=== PATIENT | male | born 1950 | race Caucasian/White ===

== ENCOUNTER 2017-04-01 14:17 | Emergency (ER) | payer MEDICARE, BC ==
--- NOTE | 2017-04-01 14:25 | UC ---
Abdominal Pain Male HPI - HPI Summary HPI Summary: 66 YEAR OLD MALE WITH A HISTORY OF AFIB/THORACIC ANEURYSM AND PRESENTS WITH VAGUE EPIGASTRIC PAIN. I AM VERY CONCERNED ABOUT HIS AORTA AND WILL SEND HIM TO THE ER. - History of Current Complaint Stated Complaint: UPPER ABDOMINAL PAIN Time Seen by Provider: 04/01/17 14:24 Hx Obtained From: Patient Onset/Duration: Lasting Days Timing: Constant Severity Initially: Moderate Severity Currently: Moderate Pain Scale Used: 0-10 Numeric - 4 - Allergies/Home Medications Allergies/Adverse Reactions: Allergies Allergy/AdvReac Type Severity Reaction Status Date / Time No Known Allergies Allergy Verified 04/01/17 14:31 PMH/Surg Hx/FS Hx/Imm Hx Previously Healthy: Yes Other History Of: Negative For: HIV - Surgical History Surgical History: Yes Surgery Procedure, Year, and Place: Cardiac Ablation, 2011, [facility]. Tonsillectomy, as a child. Cholecystectomy, 2005, [facility]. VASECTOMY 1980. Prostatectomy, [facility] - Family History Known Family History: Positive: None - Social History Alcohol Use: Rare Substance Use Type: None Smoking Status (MU): Former Smoker - Immunization History Most Recent Tetanus Shot: within 10 years Review of Systems Constitutional: Negative Skin: Negative Eyes: Negative ENT: Negative Respiratory: Negative Cardiovascular: Negative Gastrointestinal: Abdominal Pain Genitourinary: Negative Motor: Negative Neurovascular: Negative Musculoskeletal: Negative Neurological: Negative Psychological: Negative All Other Systems Reviewed And Are Negative: Yes Physical Exam Triage Information Reviewed: Yes Appearance: Well-Appearing Vital Signs Reviewed: Yes Eye Exam: Normal ENT Exam: Normal Dental Exam: Normal Neck exam: Normal Neck: Positive: 1 Respiratory Exam: Normal Cardiovascular Exam: Normal Abdomen Description: Positive: Other: - EPIGASTRIC PAIN Musculoskeletal Exam: Normal Neurological Exam: Normal Psychological Exam: Normal Skin Exam: Normal Abd Pain Male Course/Dx - Differential Dx/Clinical Impression Provider Diagnoses: EPIGASTRIC PAIN Discharge - Discharge Plan Condition: Stable Disposition: HOME Patient Education Materials: Acute Abdominal Pain (ED) Referrals: Neal Vogel MD [Primary Care Provider] - Additional Instructions: PATIENT SUGGESTED TO GO TO THE [facility] FOR FUTHRER CARDIAC EVALUATION.
[2017-04-01 14:31] VITALS: BP 132/81
== END 2017-04-01 14:49 | disposition home or self-care (01) ==
LOC: UCCORT 14:17
DX: R10.13 Epigastric pain (principal); Z87.891 Personal history of nicotine dependence
CPT/HCPCS: 99212; G0463

== ENCOUNTER 2018-10-15 16:07 | Emergency (ER) | payer MEDICARE, BC ==
--- OUTSIDE RECORDS SUMMARY | 2018-10-15 16:16 | XMS REPORT | Continuity of Care Document ---
:1950 External Reference #:[id number] Author Name Vishal San M.D. Address [address] [place] [address] Care Team Providers Name Role Phone Neal Vogel MD Care Team Information Rpg Programmer Analyst [phone] Shon Jean Baptiste MD Care Team Information Rpg Programmer Analyst [phone] Dayne Campbell MD Care Team Information Rpg Programmer Analyst [phone] Problems Active Problems Provider Date Varicose veins of lower extremity Vishal San M.D. Onset: 05/26/2018 Peripheral venous insufficiency Vishal San M.D. Onset: 05/26/2018 Swelling of lower limb Vishal San M.D. Onset: 05/26/2018 Social History Type Date Description Comments Sex Unknown ETOH Use Occasionally consumes alcohol Tobacco Use Start: Unknown End: Patient is a former smoker 1 PPD x 15 years Smoking Status Reviewed: 09/29/18 Patient is a former smoker 1 PPD x 15 years Allergies, Adverse Reactions, Alerts Active Allergies Reaction Severity Comments Date NKDA 05/26/2018 No Latex Allergy 05/26/2018 Medications Active Medications SIG Qnty Indications Ordering Provider Date Klor-Con 10 Take 1 Tablet By Unknown 10Meq Mouth Every Day Tablets ER Diltiazem HCL qd Unknown 120mg Tablets Fluticasone One Inhalation Each Unknown Propionate Nostril Twice Every 50mcg/Act Day Suspension Timolol Maleate Instill 1 Drop In Unknown 0.5% Right Eye Each Solution Morning Losartan Potassium Take 1 Tablet By Unknown Mouth Every Day 100mg Tablets Naproxen Take 1 Tablet By Unknown 500mg Tablets Mouth as Directed Aspir-81 1 by mouth every Unknown 81mg Tablets day DR Hydralazine HCL Take 1 Tablet By Unknown 10mg Mouth Twice A Day Tablets as Needed SBP Over 140 Immunizations Description No Information Available Vital Signs Date Vital Result Comment 09/29/2018 1:09pm Weight 266.00 lb Height 72 inches 6'0" Heart Rate 53 /min Body Temperature 97.0 F BP Systolic 132 mmHg BP Diastolic 70 mmHg BMI (Body Mass Index) 36.1 kg/m2 07/12/2018 10:28am Weight 265.00 lb Height 72 inches 6'0" Heart Rate 60 /min Body Temperature 97.4 F BP Systolic 138 mmHg BP Diastolic 72 mmHg BMI (Body Mass Index) 35.9 kg/m2 05/26/2018 11:12am Weight 260.00 lb Height 72 inches 6'0" Heart Rate 76 /min Body Temperature 98.3 F BP Systolic 132 mmHg BP Diastolic 74 mmHg BMI (Body Mass Index) 35.3 kg/m2 Results Description No Information Available Procedures Date Code Description Status 05/26/2018 84516 Duplex Scan Extremity Veins Complete Bilateral Completed 02/25/2017 38344966 Colonoscopy Completed Medical Devices Description No Information Available Encounters Type Date Location Provider Dx Diagnosis Office Visit 09/29/2018 EZIO San, I83.813 Varicose veins of 1:00p M.D. bilateral lower extremities with pain I87.2 Venous insufficiency (chronic) (peripheral) M79.89 Other specified soft tissue disorders Office Visit 07/12/2018 10:15a EZIO San I83.813 Varicose veins of M.D. bilateral lower extremities with pain I87.2 Venous insufficiency (chronic) (peripheral) M79.89 Other specified soft tissue disorders Office Visit 05/26/2018 11:00a EZIO San I83.813 Varicose veins of M.D. bilateral lower extremities with pain I87.2 Venous insufficiency (chronic) (peripheral) M79.89 Other specified soft tissue disorders Assessments Date Code Description Provider 09/29/2018 I83.813 Varicose veins of bilateral lower Vishal San M.D. extremities with pain 09/29/2018 I87.2 Venous insufficiency (chronic) Vishal San M.D. (peripheral) 09/29/2018 M79.89 Other specified soft tissue disorders Vishal San M.D. 07/12/2018 I83.813 Varicose veins of bilateral lower Vishal San M.D. extremities with pain 07/12/2018 I87.2 Venous insufficiency (chronic) Vishal San M.D. (peripheral) 07/12/2018 M79.89 Other specified soft tissue disorders Vishal San M.D. 05/26/2018 I83.813 Varicose veins of bilateral lower Vishal San M.D. extremities with pain 05/26/2018 I83.813 Varicose veins of bilateral lower [facility] extremities with pain 05/26/2018 I87.2 Venous insufficiency (chronic) Vishal San M.D. (peripheral) 05/26/2018 I87.2 Venous insufficiency (chronic) [facility] (peripheral) 05/26/2018 I83.813 Varicose veins of bilateral lower Vishal San M.D. extremities with pain 05/26/2018 I87.2 Venous insufficiency (chronic) Vishal San M.D. (peripheral) 05/26/2018 M79.89 Other specified soft tissue disorders Vishal San M.D. Plan of Treatment Future Appointment(s):11/15/2018 9:30 am - [facility] [id number] 3:00 pm - [place] [facility] 9:00 am - [facility] [id number]/13/2018 2:30 pm - [facility] [id number] 9:00 am - Vishal [place] [facility]2018 9:00 am - Vishal [place] [facility]2018 9:00 am - [facility] [id number] - Vishal San M.D.I83.813 Varicose veins of bilateral lower extremities with painComments:The patient has symptomatic varicose veins bilaterally with clinical evidence of venous valvular reflux and valvular insufficiency. The patient is encouraged to continue to wear the graduated support stockings ordered, continue with elevation and avoidance of trauma. The patient has no new issues at this time follow-up with the primary care provider and return to office as planned. The patient has been wearing the graduated support stockings ordered, elevating the legs as much as possible, and using anti-inflammatory medications with minimal improvement of the varicose vein symptoms and venous valvular reflux and valvular insufficiency symptoms...wishes to proceed with an operative intervention at this time.The risks and options, including but not limited to infection, recurrence, more surgery, DVT, pulmonary emboli has been discussed in detail and the patient understands the risks and options and wishes to proceed with the planned surgical intervention. The option of continued conservative management and no surgical or intervention option was also discussed in great detail and explained to the patient the possible outcomes of intervention or conservative management with no surgical intervention . The patient was offered a second surgical opinion and consultation which was declined.Follow up:The patient will be scheduled for a left leg great saphenous vein endovenous occlusion and ClosureFast operative procedure and sclerotherapy on 10/31/2018 and then on 2018 of the right leg great saphenous vein endovenous occlusion using the ClosureFast operative procedure as well as sclerotherapy and ambulatory stab phlebectomy.I87.2 Venous insufficiency (chronic) (peripheral)M79.89 Other specified soft tissue [id number]/16/2019 - Vishal San M.D.I83.813 Varicose veins of bilateral lower extremities with painComments:The patient has symptomatic varicose veins bilaterally with clinical evidence of venous valvular reflux and valvular insufficiency. The patient is encouraged to continue to wear the graduated support stockings ordered, continue with elevation and avoidance of trauma. The patient has been wearing the graduated support stockings ordered, elevating the legs as much as possible, and using anti-inflammatory medications with minimal improvement of the varicose vein symptoms and venous valvular reflux and valvular insufficiency symptoms...wishes to proceed with an operative intervention at this time. The risks and options, including but not limited to infection, recurrence, more surgery, DVT, pulmonary emboli has been discussed in detail and the patient understands the risks and options and wishes to proceed with the planned surgical intervention. The option of continued conservative management and no surgical or intervention option was also discussed in great detail and explained to the patient the possible outcomes of intervention or conservative management with no surgical intervention and the patient decided to proceed with the surgical intervention at this time. The patient was offered a second surgical opinion and consultation which was declined.Follow up:- follow up with Dr. Vishal San in 09/2018 after his return from the [facility] - RIGHT leg GSV ClosureFast Radiofreuency endovenous ablation operative procedure and ambulatory stab phlebectomy and sclerotherapy after his return from [place] in the spring.I87.2 Venous insufficiency (chronic) (peripheral) M79.89 Other specified soft tissue [id number]/30/2018 - Vishal San M.D.I83.813 Varicose veins of bilateral lower extremities with painNew Orders: Support Stockings, Ordered: 05/26/18Comments:The patient has symptomatic varicose veins bilaterally with clinical evidence of venous valvular reflux and valvular insufficiency. The patient is encouraged to continue to wear the graduated support stockings ordered, continue with elevation and avoidance of trauma. We will proceed with elevation of the legs to decrease the symptomatic varicose vein discomfort, anti-inflammatory medications, as wellas a prescription for graduated support stockings.Follow up:return to our Office in [address] Vishal LawtonerI87.2 Venous insufficiency (chronic) (peripheral) M79.89 Other specified soft tissue disorders Functional Status Description No Information Available Mental Status Description No Information Available Referrals Description No Information Available
[2018-10-15 16:24] VITALS: BP 129/59
--- NOTE | 2018-10-15 16:37 | ED ---
Throat Pain/Nasal Congestion - HPI Summary HPI Summary: 67 yr old male with the complaint of sinus pain frontal and maxillary. He has had runny nose, post nasal drip, coughing. Onset of symptoms was three days ago. He feels that he has a sinus infection. Symptoms are moderate - History of Current Complaint Chief Complaint: UCRespiratory Time Seen by Provider: 10/15/18 16:28 - Allergies/Home Medications Allergies/Adverse Reactions: Allergies Allergy/AdvReac Type Severity Reaction Status Date / Time No Known Allergies Allergy Verified 10/15/18 16:24 Home Medications: Home Medications Hydrochlorothiazide TAB* [Hydrodiuril TAB*] 25 mg PO DAILY 10/15/18 [History Confirmed 10/15/18] hydrALAZINE TAB* [Apresoline TAB*] 10 mg PO BID 10/15/18 [History Confirmed ] PMH/Surg Hx/FS Hx/Imm Hx Endocrine/Hematology History: Denies: Hx Diabetes, Hx Thyroid Disease Cardiovascular History: Reports: Hx Hypertension Denies: Hx Pacemaker/ICD Respiratory History: Denies: Hx Chronic Obstructive Pulmonary Disease (COPD), Hx Lung Cancer History: Denies: Hx Dialysis, Hx Renal Disease Sensory History: Reports: Hx Hearing Aid Neurological History: Denies: Hx Transient Ischemic Attacks (TIA) Psychiatric History: Denies: Hx Anxiety, Hx Panic Disorder - Cancer History Cancer Type, Location and Year: PROSTATE - Surgical History Surgery Procedure, Year, and Place: Cardiac Ablation, 2011, [facility]. Tonsillectomy, as a child. Cholecystectomy, 2005, [facility]. VASECTOMY 1980. Prostatectomy, [facility] Infectious Disease History: No Infectious Disease History: Denies: Hx Clostridium Difficile, Hx Hepatitis, Hx Human Immunodeficiency Virus (HIV), Hx of Known/Suspected MRSA, Hx Shingles, Hx Tuberculosis, Hx Known/ Suspected VRE, Hx Known/Suspected VRSA, History Other Infectious Disease, Traveled Outside the [place] in Last 30 Days - Family History Known Family History: Positive: None - Social History Occupation: Employed Full-time Alcohol Use: Rare Substance Use Type: Reports: None Smoking Status (MU): Former Smoker Review of Systems Constitutional: Negative Positive: Nasal Discharge, Other - sinus pain post nasal drip. Positive: Cough All Other Systems Reviewed And Are Negative: Yes Physical Exam Triage Information Reviewed: Yes Vital Signs On Initial Exam: Initial Vitals Temp Pulse Resp BP Pulse Ox 97.9 F 59 16 129/59 99 10/15/18 16:21 10/15/18 16:21 10/15/18 16:21 10/15/18 16:21 10/15/18 16:21 Vital Signs Reviewed: Yes Appearance: Positive: Well-Appearing, No Pain Distress Skin: Positive: Warm, Skin Color Reflects Adequate Perfusion Head/Face: Positive: Normal Head/Face Inspection Eyes: Positive: EOMI ENT: Positive: Pharynx normal, Nasal drainage, TMs normal, Sinus tenderness Neck: Positive: Nontender Respiratory/Lung Sounds: Positive: Clear to Auscultation, Breath Sounds Present Cardiovascular: Positive: RRR. Negative: Murmur Abdomen Description: Negative: Distended Musculoskeletal: Positive: Strength/ROM Intact Neurological: Positive: Sensory/Motor Intact, Alert, Oriented to Person Place, Time, CN Intact II-III, Normal Gait, Speech Normal Psychiatric: Positive: Normal - [place] Coma Scale Best Eye Response: 4 - Spontaneous Best Motor Response: 6 - Obeys Commands Best Verbal Response: 5 - Oriented Coma Scale Total: 15 Diagnostics - Vital Signs Vital Signs Temp Pulse Resp BP Pulse Ox 10/15/18 16:21 97.9 F 59 16 129/59 99 - Laboratory Lab Statement: Any lab studies that have been ordered have been reviewed, and results considered in the medical decision making process. EENT Course/Dx - Course Course Of Treatment: 67 yr old male with sinusitis. RX with Augmentin. - Diagnoses Provider Diagnoses: Sinusitis Discharge - Sign-Out/Discharge Documenting (check all that apply): Patient Departure All imaging exams completed and their final reports reviewed: No Studies - Discharge Plan Condition: Good Disposition: HOME Prescriptions: Amoxicillin/Clavulanate TAB* [Augmentin TAB 875*] 875 mg PO BID #20 tab Patient Education Materials: Sinusitis (ED) Referrals: Neal Vogel MD [Primary Care Provider] - 3 Days - Billing Disposition and Condition Condition: GOOD Disposition: Home
== END 2018-10-15 16:41 | disposition home or self-care (01) ==
LOC: UCCORT 16:07
DX: J32.9 Chronic sinusitis, unspecified (principal); R51 Headache; R09.82 Postnasal drip; R05 Cough; Z87.891 Personal history of nicotine dependence
CPT/HCPCS: 99212; G0463